=== PATIENT | male | born 1945 | race Caucasian/White ===

== ENCOUNTER 2017-01-21 11:50 | Emergency (ER) | payer OTHER ==
--- NOTE | 2017-01-21 13:00 | EDPHY ---
H & P Stated Complaint: lumbar pain x 3 weeks, episode of dizziness last night, recent sciatica dx Time Seen by Provider: 01/21/17 12:59 HPI/ROS: CHIEF COMPLAINT: Lumbar pain, episodic vertigo HISTORY OF PRESENT ILLNESS: The patient presents to the ED after 3 episodes of vertigo over the past 24 hours. The patient describes fairly typical positional vertigo with vertigo, nausea and lightheadedness that or precipitated with movement of his head. He has had no recurrent vertigo today. Additionally the patient has been dealing with some right low back pain with mild sciatic symptoms into his right leg. The patient denies any weakness, bowel/bladder dysfunction, fever or other acute complaints. The patient denies neck pain, cervical manipulation or fall or trauma. The patient has no complaints of acute headache. REVIEW OF SYSTEMS: A comprehensive 10 point review of systems is otherwise negative aside from elements mentioned in the history of present illness. Source: Patient Exam Limitations: No limitations - Personal History Current Tetanus/Diphtheria Vaccine: Unsure Current Tetanus Diphtheria and Acellular Pertussis (TDAP): Unsure - Medical/Surgical History Hx Asthma: No Hx Chronic Respiratory Disease: No Hx Diabetes: No Hx Cardiac Disease: No Hx Renal Disease: No Hx Cirrhosis: No Hx Alcoholism: No Hx HIV/AIDS: No Hx Splenectomy or Spleen Trauma: No Other PMH: gerd - Social History Smoking Status: Never smoked - Physical Exam Exam: General Appearance: Alert, no distress Eyes: Pupils equal and round no pallor or injection ENT, Mouth: Mucous membranes moist Respiratory: There are no retractions, lungs are clear to auscultation Cardiovascular: Regular rate and rhythm Gastrointestinal: Abdomen is soft and nontender, no masses, bowel sounds normal Neurological: Alert and oriented x4, 5/5 strength all 4 extremities, patient does have radicular pain into his right leg without detectable weakness, clonus or saddle anesthesia Skin: Warm and dry, no rashes Musculoskeletal: Tenderness to palpation noted in the right lumbar spine with some sensory symptoms suggestive of right lumbar radiculopathy Extremities: symmetrical, full range of motion Psychiatric: Patient is oriented X 3, there is no agitation Constitutional: Initial Vital Signs Temperature (C) 36.7 C 01/21/17 12:06 Heart Rate 72 01/21/17 12:06 Respiratory Rate 16 01/21/17 12:06 Blood Pressure 174/114 H 01/21/17 12:06 O2 Sat (%) 97 01/21/17 12:06 O2 Delivery Mode Room Air Allergies/Adverse Reactions: dexamethasone [From Decadron] Allergy (Verified 01/21/17 12:05) Home Medications: Medication Instructions Recorded Ondansetron Odt [Zofran Odt] 4 mg PO Q4PRN PRN #20 tab 01/21/17 predniSONE [prednisone 20mg (RX)] 3 tab PO DAILY #15 tab 01/21/17 Medical Decision Making ED Course/Re-evaluation: The patient presents to the ED with 2 issues the 1st issue is low back for the past 3 weeks consistent with sciatica without bowel or bladder dysfunction. The patient will be given prednisone and referral to our back specialist for any ongoing symptoms. Additionally, the patient did experience several episodes of benign positional vertigo earlier today. The patient is noted to be neurologically intact and currently asymptomatic. He has no complaints of neck pain and had no history of physical findings suggestive of vertebral dissection. Patient is comfortable being discharged home with education in the care of peripheral vertigo. He is given customary aftercare and return precautions. Differential Diagnosis: Differential diagnosis considered includes sciatica, myofascial strain, central vertigo, peripheral vertigo Departure - Departure Disposition: Home, Routine, Self-Care Clinical Impression: Sciatica, Benign positional vertigo Condition: Good Instructions: Sciatica (ED), Benign Paroxysmal Positional Vertigo (ED) Additional Instructions: 1. Return to the ED for any headache, numbness, weakness, worsening symptoms or other concerns. 2. Please take prednisone as directed for symptoms of your sciatica. 3. Please schedule a follow-up appointment with a spinal specialist you have been referred to for any ongoing low back pain. Please return to the ED immediately for bowel or bladder dysfunction, weakness or acute worsening numbness. 4. Please use Zofran as needed for nausea. Please use meclizine as needed for any recurrent vertigo Referrals: Michael Ricketts MD [Medical Doctor] - As per Instructions LORA GARY [Primary Care Provider] - As per Instructions Prescriptions: Ondansetron Odt [Zofran Odt] 4 mg PO Q4PRN PRN #20 tab PRN Reason: For Nausea predniSONE [prednisone 20mg (RX)] 3 tab PO DAILY #15 tab
[2017-01-21 13:47] VITALS: BP 150/100; PULSE 84; RESP 14; TEMP 98.4; O2SAT 94
== END 2017-01-21 13:46 | disposition home or self-care (01) ==
DX: H81.10 Benign paroxysmal vertigo, unspecified ear (principal); M54.30 Sciatica, unspecified side